=== PATIENT | male | born 1975 | race Two or more races ===

== ENCOUNTER 2022-02-13 10:08 | Emergency (ER) | payer MEDICAID ==
[~2022-02-13] VITALS: Ht 180.3 cm; Wt 78.0 kg
[2022-02-13 10:12] VITALS: BP 148/93
[2022-02-13] MEDS ORDERED: SODIUM CHLORIDE 0.9% 1,000 ML IV ONE (10:30)
[2022-02-13 10:45] LABS: BASOPHILS % 1.2 % (0.0-2.0); EOSINOPHILS % 1.8 % (0.0-5.0); HEMATOCRIT. 47.2 % (42.0-52.0); HEMOGLOBIN. 15.6 g/dL (14.0-18.0); LYMPHOCYTES % 25.3 % (20.0-50.0); MEAN CORPUSCULAR HEMOGLOBIN 28.7 pg (28.0-32.0); MEAN CORPUSCULAR VOLUME 86.7 fL (80.0-94.0); MEAN PLATELET VOLUME 7.7 fl (7.4-10.4); MONOCYTES % 8.1 % (2.0-8.0); NEUTROPHILS % 63.6 % (40.0-76.0); PLATELET 392 x1000/uL (130-400); RED BLOOD CELL COUNT 5.44 mill/uL (4.7-6.1); RED CELL DISTRIBUTION WIDTH 14.1 % (11.6-14.6)
[2022-02-13 11:01] LABS: CHLORIDE 110 mEq/L (98-107)
[2022-02-13 11:05] LABS: ETHANOL BLOOD < 10 mg/dL
[2022-02-13 11:07] LABS: CLARITY URINE CLEAR (CLEAR); COLOR URINE YELLOW (YELLOW); KETONES URINE NEGATIVE (NEGATIVE); LEUKOCYTE ESTERASE URINE NEGATIVE (NEGATIVE); NITRITE URINE NEGATIVE (NEGATIVE); OCCULT BLOOD URINE 1+ (NEGATIVE); PROTEIN URINE NEGATIVE (NEGATIVE); SPECIFIC GRAVITY URINE 1.014 (1.005-1.030)
[2022-02-13] MEDS ORDERED: ACETAMINOPHEN 325MG TABLET PO SCH (11:15)
[2022-02-13 11:28] LABS: *AMPHETAMINES SCREEN URINE NEGATIVE (NEGATIVE); *BARBITURATES SCREEN URINE NEGATIVE (NEGATIVE); *BENZODIAZEPINES SCREEN URINE NEGATIVE (NEGATIVE); *COCAINE SCREEN URINE NEGATIVE (NEGATIVE)
[2022-02-13 11:29] LABS: CANNABINOID URINE SCREEN NEGATIVE (NEGATIVE); METHADONE URINE SCREEN NEGATIVE (NEGATIVE); OPIATES URINE SCREEN NEGATIVE (NEGATIVE); PHENCYCLIDINE URINE SCREEN NEGATIVE (NEGATIVE)
[2022-02-13] MEDS ORDERED: P20 MT (11:49)
[2022-02-13] MEDS ORDERED: ACYC200C31 MT (11:49)
[2022-02-13] MEDS ORDERED: ACET-2708 MT (11:49)
[2022-02-13] MEDS ORDERED: MAGNESIUM/ALUMINUM HYDROXIDE/SIMETHICONE 30ML UDC PO SCH (12:00)
[2022-02-13] MEDS ORDERED: PREDNISONE 20MG TABLET PO SCH (12:00)
[2022-02-13] MEDS ORDERED: ONDANSETRON 4MG ODT PO SCH (12:00)
== END 2022-02-13 12:08 | disposition home or self-care (01) ==
LOC: ER 10:23
DX: G51.0 Bell's palsy (principal); I10 Essential (primary) hypertension
CPT/HCPCS: 36415; 70450; 80053; 80305; 80320; 81003; 85025; 99284; J7030; G0480